=== PATIENT | female | born 1970 | race Caucasian/White ===

== ENCOUNTER 2023-05-07 06:44 | Outpatient (CLI) | payer OTHER, MEDICAID, SELFPAY ==
--- NOTE | 2023-05-07 06:45 | US_ITS ---
WS: [id number] INDICATION: RIGHT neck area pain. History of salivary gland removal TECHNIQUE: Ultrasound soft tissue neck area of concern FINDINGS: Ultrasound soft tissue RIGHT neck area of concern. Normal underlying subcutaneous tissues. No cystic or solid lesions. Normal appearing lymph nodes. No suspicious findings. IMPRESSION: No suspicious findings in the area of concern.
== END 2023-05-07 06:45 | disposition home or self-care (01) ==
LOC: RAD 06:44
PROVIDERS: PCP Nurse Practitioner Family; Visit Provider Specialist
DX: G89.28 Other chronic postprocedural pain (principal); M54.2 Cervicalgia; Z90.89 Acquired absence of other organs
CPT/HCPCS: 76536

== ENCOUNTER → 2023-12-11 08:42 | Outpatient (BNVA) | payer OTHER, MEDICAID, SELFPAY | PROVIDERS: PCP Nurse Practitioner Family; Visit Provider Nurse Practitioner Family | DX: I10 Essential (primary) hypertension (principal); E55.9 Vitamin D deficiency, unspecified; Z79.899 Other long term (current) drug therapy | CPT/HCPCS: 80053; 80061; 82306; 82607; 83735; 84439; 84443; 85025 ==